=== PATIENT | female | born 1940 | race Caucasian/White ===

== ENCOUNTER 2020-07-31 15:09 | Emergency (ER) | payer MEDICARE, OTHER ==
[~2020-07-31 15:09] MED LIST: ARICEPT 5MG TABL5 MG PO; ASPIRIN EC81 MG PO; CALCIUM + VITA1 EACH PO; CERTAGEN1 EACH PO; CITALOPRAM HBR20 MG PO; FEOSOL325 M1 PO; KEPPRA750 MG PO; LAMICTAL200 MG PO; LAMOTRIGINE200 MG PO; LISINOPRIL40 MG PO; MELOXICAM15 MG PO; PERCOCET 5-3251 EACH PO; PROTONIX 40MG T40 MG PO; TRAZODONE 50MG50 MG PO; VESICARE5 MG PO; ZOCOR10 MG PO
[2020-07-31] MEDS ORDERED: NORCO 5-325 TA1 EACH PO (17:24)
== END 2020-07-31 17:46 | disposition home or self-care (01) ==
LOC: FER 15:09
DX: S22.32XA Fracture of one rib, left side, initial encounter for closed fracture (principal); I10 Essential (primary) hypertension; Z88.5 Allergy status to narcotic agent; W00.0XXA Fall on same level due to ice and snow, initial encounter
CPT/HCPCS: 71101

== ENCOUNTER 2022-03-11 12:30 | Emergency (ER) | payer MEDICARE, OTHER ==
[~2022-03-11 12:30] MED LIST changes: +NORCO 5-325 TA1 EACH PO
== END 2022-03-11 15:36 | disposition home or self-care (01) ==
LOC: FER 12:30
DX: S00.12XA Contusion of left eyelid and periocular area, initial encounter (principal); I10 Essential (primary) hypertension; W19.XXXA Unspecified fall, initial encounter; Y92.129 Unspecified place in nursing home as the place of occurrence of the external cause
CPT/HCPCS: 70450; 72125